=== PATIENT | female | born 1970 | race African-American/Black ===

== ENCOUNTER 2020-08-16 18:16 | Emergency (ER) | payer SELFPAY ==
[2020-08-16] VITALS (19 sets, daily range): BP systolic 106–146; BP diastolic 73–100; PULSE 66–89; RESP 13–23; TEMP 36.6; O2SAT 98–100
--- NOTE | ~2020-08-16 | XR_ITS ---
XR chest 1V portable DATE: 08/16/2020 19:21 INDICATION: Dyspnea TECHNIQUE: Portable AP chest on 08/16/2020 at 1923 hours COMPARISON: None FINDINGS: Heart size appears within normal range. No hilar or mediastinal enlargement. No pulmonary i nfiltrate or consolidation, pleural effusion or pulmonary vascular congestion or pneumothorax. Osteopenia. IMPRESSION: No active cardiopulmonary disease Reviewed, dictated and finalized at location A.
--- NOTE | 2020-08-16 18:26 | ECG_ITS ---
Measurements Intervals [place] Rate: 78 P: 52 ND: 163 QRS: -27 QRSD: 98 T: 7 QT: 359 QTc: 410 Interpretive Statements SINUS RHYTHM DELAYED PRECORDIAL R/S TRANSITION ST ELEVATION IN ANT/HIGH LAT LEADS, PROBABLY EARLY REPOLARIZATION BASELINE ARTIFACT- II, III, AVF, V1-V6 BORDERLINE ECG Electronically Signed On 08-17-2020 7:36:28 CDT by Tor Leyva D.O.
--- NOTE | 2020-08-16 19:08 | ED.GENADULT ---
HPI - General Adult General Chief complaint: Anxiety Stated complaint: anxiety/sob Time Seen by Provider: 08/16/20 19:03 Source: RN notes reviewed History of Present Illness HPI narrative: Patient presents emergency department from home for anxiety. Patient states that she has been having issues with anxiety that resolved around going to work states she has seen a therapist for this and is post be starting medication this coming week but has not started it yet she states that with her anxiety she feels short of breath as well as nauseous she states she is feeling better at this time she denies any fevers or chills, chest pain abdominal pain or any other symptoms Related Data Allergies Allergy/AdvReac Type Severity Reaction Status Date / Time aspartame Allergy Unknown Verified 08/16/20 18:22 Review of Systems Review of Systems: Narrative: Gen.: Denies fevers or chills ENT: Denies congestion Respiratory: Denies shortness of breath or cough CV: Denies chest pain or palpitations GI: Denies abdominal pain emesis or diarrhea reports nausea Musculoskeletal: Denies back pain or muscle pain Neuro: Denies numbness, tingling, weakness or focal weakness Skin: Reports anxiety Except as documented, all other systems reviewed and negative [facility] Past Medical History Medical History (Updated 08/16/20 @ 22:35 by Gianluca Akbar DO) Patient denies significant medical history Social History Social History (Updated 08/16/20 @ 19:09 by Gianluca Akbar DO) Smoking status: Never smoker Gender identity (if verbalized by the patient): Female Exam Narrative: Exam Narrative: APPEARANCE: No acute distress, nontoxic, resting in bed EYES: EOMI HEENT: Normocephalic, atraumatic, OMM RESPIRATORY: No respiratory distress Clear to auscultation bilaterally with no rhonchi wheezing or rales. CARDIOVASCULAR: Regular rate and rhythm without murmurs rubs or gallops. ABDOMINAL: Soft, nontender, nondistended, no rebound or guarding MUSCULOSKELETAl: Moves all extremities. No clubbing, cyanosis or edema. NEURO: Awake and alert. Following commands, speech normal, no focal deficits SKIN:: Warm, dry. No rashes lesions or abrasions PSYCHIATRIC: Normal affect/mood, Course Course Emergency Course: Patient asymptomatic while in ED Discussed with patient results of workup and diagnosis. Discussed need for follow-up with primary care, proper use of medication, and reasons to return to the emergency department. Patient understands and agrees to current treatment plan Vital Signs Vital signs: Vital Signs Temperature 97.8 F 08/16/20 18:19 Pulse Rate 88 08/16/20 18:19 Respiratory Rate 18 08/16/20 18:19 Blood Pressure 120/100 H 08/16/20 18:19 Pulse Oximetry 100 08/16/20 18:19 Temperature 97.8 F 08/16/20 18:19 Pulse Rate 72 08/16/20 21:31 Respiratory Rate 14 08/16/20 21:31 Blood Pressure 106/73 08/16/20 21:31 Pulse Oximetry 100 08/16/20 21:31 Medical Decision Making Vital Signs Vital Signs: Vital Signs Temperature 97.8 F 08/16/20 18:19 Pulse Rate 88 08/16/20 18:19 Respiratory Rate 18 08/16/20 18:19 Blood Pressure 120/100 H 08/16/20 18:19 Pulse Oximetry 100 08/16/20 18:19 Temperature 97.8 F 08/16/20 18:19 Pulse Rate 72 08/16/20 21:31 Respiratory Rate 14 08/16/20 21:31 Blood Pressure 106/73 08/16/20 21:31 Pulse Oximetry 100 08/16/20 21:31 Lab Data Result diagrams: 08/16/20 19:31 08/16/20 19:31 Labs: Lab Results 08/16/20 08/16/20 08/16/20 Range/Units 19:31 19:31 19:31 WBC 4.6 (4.5-10.0) K/mm3 RBC 4.68 (4.2-5.4) M/mm3 Hgb 12.4 (12.0-15.0) g/dL Hct 37.9 (37.0-47.0) % MCV 81.0 (80-100) fl MCH 26.5 (26-34) pg MCHC 32.7 (32-36) g/dl RDW 15.7 H (11.5-14.5) % Plt Count 192 (150-375) k/mm3 MPV 11.9 H (7.4-10.4) fl Immature Gran % (Auto) 0.2 (0-0.5) % Neut % (Auto) 65.6 (45.5-73.1) %
[2020-08-16 19:39] LABS: Basophils Percent Auto 0.4 % (0.2-1.2); Eosinophils Percent Auto 0.2 % (0-4.4); Hematocrit 37.9 % (37.0-47.0); Hemoglobin 12.4 g/dL (12.0-15.0); Immature Granulocyte Absolute 0.01 K/mm3 (0.00-0.031); Immature Granulocyte Percent A 0.2 % (0-0.5); Lymphocytes Absolute Auto 1.26 K/mm3 (0.9-3.2); Lymphocytes Percent Auto 27.3 % (18.3-44.2); Mean Corpuscular HGB Conc 32.7 g/dl (32-36); Mean Corpuscular Hemoglobin 26.5 pg (26-34); Mean Platelet Volume 11.9 fl (7.4-10.4); Monocytes Absolute Auto 0.3 K/mm3 (0.1-0.6); Monocytes Percent Auto 6.3 % (2.6-8.5); Neutrophils Percent Auto 65.6 % (45.5-73.1); Platelet Count Result 192 k/mm3 (150-375); Red Blood Count 4.68 M/mm3 (4.2-5.4); Red Cell Distribution Width 15.7 % (11.5-14.5); White Blood Count 4.6 K/mm3 (4.5-10.0)
[2020-08-16 19:49] LABS: INR 0.9; Prothrombin Time 13.1 Seconds (11.1-14.7)
[2020-08-16 19:50] LABS: Anion Gap 12 mmol/L (8-16); Blood Urea Nitrogen 16 mg/dL (7-17); Calcium 10.3 mg/dL (8.4-10.2); Carbon Dioxide 19 mmol/L (22-30); Chloride 114 mmol/L (98-107); Estimated CRCL calculation 63 ml/min; Estimated Glomerular Filt Rate > 60; Glucose 83 mg/dL (65-105); Partial Thromboplastin Time 26.6 SECONDS (22.3-36.8); Potassium 3.8 mmol/L (3.4-5.0); Sodium 145 mmol/L (137-145)
[2020-08-16 20:02] LABS: Troponin I < 0.012 ng/mL (0.000-0.034)
[2020-08-16 22:32] LABS: Troponin I < 0.012 ng/mL (0.000-0.034)
== END 2020-08-16 22:54 | disposition home or self-care (01) ==
PROVIDERS: Emergency Provider Emergency Medicine
DX: F41.9 Anxiety disorder, unspecified (principal); R06.00 Dyspnea, unspecified; R94.31 Abnormal electrocardiogram [ECG] [EKG]
CPT/HCPCS: 36415; 71045; 80048; 84484; 85025; 85610; 85730; 93005; 99284